=== PATIENT | male | born 1935 | race Two or more races ===

== ENCOUNTER → 2021-05-21 | Outpatient (CLI) | payer OTHER, MEDICARE ==
[2021-05-21 17:02] LABS: BUN/Creatinine Ratio 20.9; Calcium 8.5 mg/dL (8.5-10.1); Potassium 4.4 mmol/L (3.5-5.1)
== END | disposition home or self-care (01) ==
LOC: LAB 16:09
PROVIDERS: ATTEND Internal Medicine
DX: E11.9 Type 2 diabetes mellitus without complications (principal)
CPT/HCPCS: 36415; 80048

== ENCOUNTER → 2021-08-13 | Outpatient (CLI) | payer MEDICARE, MEDICAID | END | disposition home or self-care (01) | LOC: Rad HDHVI 14:26 | PROVIDERS: ATTEND Internal Medicine | DX: I07.1 Rheumatic tricuspid insufficiency (principal); I48.91 Unspecified atrial fibrillation; I10 Essential (primary) hypertension | CPT/HCPCS: 93306 ==

== ENCOUNTER → 2021-11-05 | Outpatient (CLI) | payer MEDICARE | END | disposition home or self-care (01) | LOC: LAB 16:19 | PROVIDERS: ATTEND Internal Medicine | DX: N39.0 Urinary tract infection, site not specified (principal) | CPT/HCPCS: 87086 ==

== ENCOUNTER → 2021-11-20 | Outpatient (CLI) | payer MEDICARE ==
[2021-11-20 14:13] LABS: Eosinophils # (auto) 0.2 10 ^3/uL (0-0.8); Mean Corpuscular Hemoglobin 26.2 pg (28.0-32.0)
[2021-11-20 14:14] LABS: Basophils # (auto) 0 10 ^3/uL (0-0.2); Basophils % (auto) 0.4 % (0.0-2.0); Eosinophils % (auto) 2.4 % (0.0-7.0); Hematocrit 55.2 % (41.0-53.0); Hemoglobin 17.6 g/dL (13.5-17.5); Lymphocytes # (auto) 2.6 10 ^3/uL (0.4-5.4); Lymphocytes % (auto) 27.9 % (10.0-50.0); Mean Corpuscular Volume 81.8 fL (80.0-100.0); Monocytes # (auto) 0.8 10 ^3/uL (0-1.3); Monocytes % (auto) 9.2 % (0.0-12.0); Neutrophils # (auto) 5.6 10 ^3/uL (1.6-8.6); Neutrophils % (auto) 60.1 % (37.0-80.0); Nucleated Red Blood Cells % 0.2 %; Red Blood Cells 6.74 10^6/uL (4.5-5.90); White Blood Cell 9.2 10^3/uL (4.4-10.8)
[2021-11-20 14:30] LABS: Urine Bacteria NONE SEEN /hpf (None Seen); Urine Blood 3+ /uL (Negative); Urine Specific Gravity 1.031 (1.001-1.035); Urine WBC 3 /hpf (0 - 3)
[2021-11-20 14:50] LABS: Albumin 3.2 g/dL (3.4-5.0); Potassium 4.9 mmol/L (3.5-5.1)
[2021-11-20 14:54] LABS: BUN/Creatinine Ratio 20.2; Bilirubin, Total 0.7 mg/dL (0.2-1.0); Total Protein 7.2 g/dL (6.4-8.2)
== END | disposition home or self-care (01) ==
LOC: LAB 14:00
PROVIDERS: ATTEND Internal Medicine
DX: E11.22 Type 2 diabetes mellitus with diabetic chronic kidney disease (principal); N18.31 Chronic kidney disease, stage 3a; N39.0 Urinary tract infection, site not specified
CPT/HCPCS: 36415; 80053; 81001; 83036; 85025

== ENCOUNTER → 2022-02-07 | Outpatient (CLI) | payer MEDICARE, OTHER ==
[2022-02-07 15:15] LABS: Urine Bacteria NONE SEEN /hpf (None Seen); Urine Blood TRACE /uL (Negative); Urine Specific Gravity 1.028 (1.001-1.035); Urine WBC 6 /hpf (0 - 3)
[2022-02-07 15:29] LABS: Calcium 8.5 mg/dL (8.5-10.1)
[2022-02-07 15:31] LABS: BUN/Creatinine Ratio 19.1
== END | disposition home or self-care (01) ==
LOC: LAB 14:42
PROVIDERS: ATTEND Internal Medicine
DX: E11.9 Type 2 diabetes mellitus without complications (principal); N39.0 Urinary tract infection, site not specified
CPT/HCPCS: 36415; 80048; 81001; 83036

== ENCOUNTER → 2022-02-28 | Outpatient (CLI) | payer MEDICARE, OTHER | END | disposition home or self-care (01) | LOC: LAB 13:37 | PROVIDERS: ATTEND Internal Medicine | DX: N39.0 Urinary tract infection, site not specified (principal) | CPT/HCPCS: 87086 ==

== ENCOUNTER → 2022-08-15 | Outpatient (CLI) | payer MEDICARE, OTHER ==
[2022-08-15 09:59] LABS: Basophils # (auto) 0 10 ^3/uL (0-0.2); Basophils % (auto) 0.3 % (0.0-2.0); Eosinophils # (auto) 0.1 10 ^3/uL (0-0.8); Eosinophils % (auto) 1.7 % (0.0-7.0); Hematocrit 49.7 % (41.0-53.0); Hemoglobin 16.6 g/dL (13.5-17.5); Lymphocytes # (auto) 2.6 10 ^3/uL (0.4-5.4); Lymphocytes % (auto) 32.5 % (10.0-50.0); Mean Corpuscular Hemoglobin 30.3 pg (28.0-32.0); Mean Corpuscular Hgb Conc. 33.5 g/dL (32.0-36.0); Mean Corpuscular Volume 90.7 fL (80.0-100.0); Monocytes # (auto) 0.7 10 ^3/uL (0-1.3); Monocytes % (auto) 8.9 % (0.0-12.0); Neutrophils # (auto) 4.5 10 ^3/uL (1.6-8.6); Neutrophils % (auto) 56.6 % (37.0-80.0); Nucleated Red Blood Cells % 0.2 %; Red Blood Cells 5.48 10^6/uL (4.5-5.90); Red Cell Distribution Width 15.7 % (11.8-14.3)
[2022-08-15 10:38] LABS: Albumin 3.3 g/dL (3.4-5.0); Calcium 8.9 mg/dL (8.5-10.1); Potassium 4.7 mmol/L (3.5-5.1)
[2022-08-15 10:44] LABS: Total Protein 6.4 g/dL (6.4-8.2)
== END | disposition home or self-care (01) ==
LOC: LAB 09:32
PROVIDERS: ATTEND Internal Medicine
DX: E11.9 Type 2 diabetes mellitus without complications (principal); E78.5 Hyperlipidemia, unspecified; N40.0 Benign prostatic hyperplasia without lower urinary tract symptoms
CPT/HCPCS: 36415; 80053; 80061; 82043; 83036; 85025

== ENCOUNTER 2023-01-14 15:22 | Inpatient (IN) | payer OTHER, MEDICAID ==
[~2023-01-14] VITALS: Ht 176.8 cm; Wt 94.4 kg
[2023-01-14] MEDS ORDERED: ACETAMINOPHEN 325 MG TAB PO PRN (19:15)
[2023-01-14] MEDS ORDERED: TEMAZEPAM 15 MG CAP PO PRN (19:15)
[2023-01-14] MEDS ORDERED: MAALOX PLUS or MAALOX 30 ML PO PRN (19:15)
[2023-01-14] MEDS ORDERED: DEXTROSE (50%) 50ML SYRG IV PRN (19:15)
[2023-01-14] MEDS ORDERED: ONDANSETRON HCL 4 MG/2 ML VIAL IV PRN (19:15)
[2023-01-14] MEDS ORDERED: DAPA1TAB4 PO (19:46)
[2023-01-14] MEDS ORDERED: METF-370 PO (19:46)
[2023-01-14] MEDS ORDERED: GABA-1250 PO (19:46)
[2023-01-14] MEDS ORDERED: DIGO0.12 PO (19:46)
[2023-01-14] MEDS ORDERED: SUCR1SUS26 PO (19:46)
[2023-01-14] MEDS ORDERED: TAMS0.4C36 PO (19:46)
[2023-01-14] MEDS ORDERED: METO-289 PO (19:47)
[2023-01-14] MEDS ORDERED: SPIR25TA8 PO (19:48)
[2023-01-14] MEDS ORDERED: DOXY100C4 PO (19:48)
[2023-01-14] MEDS ORDERED: FLUT50SP NAS (19:48)
[2023-01-14] MEDS ORDERED: PANT40T PO (19:49)
[2023-01-14] MEDS ORDERED: GLIP5TAB12 PO (19:49)
[2023-01-14] MEDS ORDERED: FURO40TA4 PO (19:52)
[2023-01-14] MEDS ORDERED: RIV20T PO (19:52)
[2023-01-14 19:53] VITALS: PULSE 65; RESP 18; O2SAT 99
[2023-01-14 20:00] VITALS: PULSE 65; RESP 18; O2SAT 99
[2023-01-14] MEDS: HYDROcodone-ACET 5/325MG TAB PO PRN (20:29)
[2023-01-14] MEDS: ACCU-CHEK COMFORT CURVE STRIP VI SCH (21:16)
[2023-01-14] MEDS: InsuLIN REG 1unit/0.01ml Soln (100units/ml) SC SCH (21:17)
[2023-01-14] MEDS: SODIUM CHLOR 0.9% PF (SALINE LOCK) 10ML VIAL/SYR IV SCH (21:17)
[2023-01-14 22:00] VITALS: BP 149/71; PULSE 70; RESP 19; TEMP 97.6; O2SAT 99
[2023-01-15] VITALS (7 sets, daily range): BP systolic 119–175; BP diastolic 75–92; PULSE 68–92; RESP 16–21; TEMP 97.7–99.7; O2SAT 92–100
[2023-01-15 03:05] LABS: Urine Bacteria NONE SEEN /hpf (None Seen); Urine Blood Negative /uL (Negative); Urine Clarity Clear (Clear); Urine Color Yellow (Yellow); Urine Mucus FEW (None Seen); Urine Protein, UAD TRACE (Negative); Urine Urobilinogen Normal (Negative); Urine WBC 2 /hpf (0 - 3)
[2023-01-15 03:08] LABS: Urine Specific Gravity > 1.050 (1.001-1.035)
[2023-01-15] MEDS: SODIUM CHLOR 0.9% PF (SALINE LOCK) 10ML VIAL/SYR IV SCH ×3 (06:33→22:00)
[2023-01-15] MEDS: ACCU-CHEK COMFORT CURVE STRIP VI SCH ×4 (06:33→22:00)
[2023-01-15] MEDS: InsuLIN REG 1unit/0.01ml Soln (100units/ml) SC SCH ×3 (06:35→18:11)
[2023-01-15 06:39] LABS: Eosinophils % (auto) 0.9 % (0.0-7.0); Lymphocytes # (auto) 1.4 10 ^3/uL (0.4-5.4); Nucleated Red Blood Cells % 0.1 %
[2023-01-15 06:40] LABS: Basophils # (auto) 0 10 ^3/uL (0-0.2); Eosinophils # (auto) 0.1 10 ^3/uL (0-0.8); Mean Corpuscular Hemoglobin 21.3 pg (28.0-32.0)
[2023-01-15 06:43] LABS: Basophils % (auto) 0.4 % (0.0-2.0); Hematocrit 41.4 % (41.0-53.0); Lymphocytes % (auto) 14.4 % (10.0-50.0); Mean Corpuscular Hgb Conc. 31.5 g/dL (32.0-36.0); Mean Corpuscular Volume 67.7 fL (80.0-100.0); Monocytes % (auto) 9.6 % (0.0-12.0); Neutrophils # (auto) 7.5 10 ^3/uL (1.6-8.6); Neutrophils % (auto) 74.7 % (37.0-80.0); Red Blood Cells 6.11 10^6/uL (4.5-5.90)
[2023-01-15 06:53] LABS: Albumin 3.1 g/dL (3.4-5.0); Calcium 9.2 mg/dL (8.5-10.1); Potassium 3.6 mmol/L (3.5-5.1)
[2023-01-15 06:59] LABS: BUN/Creatinine Ratio 17.6 (10.0-20.0); Bilirubin, Total 0.9 mg/dL (0.2-1.0)
[2023-01-15 07:17] LABS: Platelet Estimate Adequate
[2023-01-15 07:18] LABS: Anisocytosis Slight
[2023-01-15 07:19] LABS: Ovalocytes FEW
[2023-01-15 07:20] LABS: Hypochromia Moderate; Target Cell FEW
[2023-01-15 08:44] LABS: Folate (Folic Acid) 13.04 ng/mL (5.38-24)
[2023-01-15] MEDS: HYDROcodone-ACET 5/325MG TAB PO PRN ×2 (12:10→16:24)
[2023-01-15] MEDS ORDERED: LISINOPRIL 5 MG TAB PO ONE (14:45)
[2023-01-15] MEDS ORDERED: CYANOCOBALAMIN (B-12) 1000 MCG/1 ML VIAL IM ONE (14:45)
[2023-01-15] MEDS ORDERED: RIVAROXABAN 20 MG TAB PO SCH (18:00)
[2023-01-16] MEDS: InsuLIN REG 1unit/0.01ml Soln (100units/ml) SC SCH ×3 (00:14→11:26)
[2023-01-16] MEDS ORDERED: hydrALAZINE HCL 20 MG/ML VL IV PRN (00:45)
[2023-01-16] MEDS ORDERED: CARVEDILOL 12.5 MG TAB PO ONE (00:45)
[2023-01-16 05:00] VITALS: BP 128/77; PULSE 81; RESP 19; TEMP 99; O2SAT 92
[2023-01-16] MEDS: SODIUM CHLOR 0.9% PF (SALINE LOCK) 10ML VIAL/SYR IV SCH ×2 (06:00→14:00)
[2023-01-16] MEDS: ACCU-CHEK COMFORT CURVE STRIP VI SCH ×2 (06:45→11:26)
[2023-01-16 08:00] VITALS: PULSE 66; RESP 18; O2SAT 98
[2023-01-16 08:49] VITALS: BP_SYST 125; BP_SYST 161; BP_DIAS 57; BP_DIAS 74; PULSE 66; PULSE 85; RESP 18; RESP 24; TEMP 98.3; TEMP 98.8; O2SAT 92; O2SAT 98
[2023-01-16] MEDS ORDERED: LISINOPRIL 10 MG TAB PO SCH (10:00)
[2023-01-16] MEDS ORDERED: CARVEDILOL 12.5 MG TAB PO SCH (10:00)
[2023-01-16] MEDS ORDERED: ASPirin 81 mg TAB PO SCH (10:00)
[2023-01-16 12:45] VITALS: BP 125/71; PULSE 85; RESP 18; TEMP 98.6; O2SAT 98
[2023-01-16 13:39] VITALS: BP 125/71; PULSE 85; RESP 18; TEMP 98.6; O2SAT 98
== END 2023-01-16 14:42 | disposition home health service (06) | DRG 66 ==
LOC: WEST WING 18:39 → UNDOADMIN 18:39 → WEST WING 19:13
PROVIDERS: ADMIT Internal Medicine; ATTEND Internal Medicine
DX: I63.532 Cerebral infarction due to unspecified occlusion or stenosis of left posterior cerebral artery (principal); I10 Essential (primary) hypertension; E11.9 Type 2 diabetes mellitus without complications; I48.91 Unspecified atrial fibrillation; E78.5 Hyperlipidemia, unspecified; Z79.01 Long term (current) use of anticoagulants; Z91.81 History of falling
CPT/HCPCS: 36415; 70545; 70551; 80053; 80061; 81001; 82043; 82306; 82607; 82746; 82962; 83036; 84443; 85025; 87081; 87205; 97110; 97116; 97163; 97530; G0378; J1815; J2405

== ENCOUNTER 2023-01-18 02:07 | Inpatient (IN) | payer OTHER, MEDICAID ==
[~2023-01-18] VITALS: Ht 182.9 cm; Wt 94.7 kg
[~2023-01-18 02:07] MED LIST: DAPA1TAB4 PO; DIGO0.12 PO; FLUT50SP NAS; FURO40TA4 PO; GABA-1250 PO; GLIP5TAB12 PO; METF-370 PO; METO-289 PO; PANT40T PO; RIV20T PO; SPIR25TA8 PO; SUCR1SUS26 PO; TAMS0.4C36 PO
[2023-01-18 07:00] VITALS: BP 158/83; PULSE 70; RESP 17; TEMP 98.5; O2SAT 98
[2023-01-18] MEDS ORDERED: MORPHINE SULFATE INJ 2 MG/ml SYRG IV PRN (07:45)
[2023-01-18] MEDS ORDERED: NITROGLYCERIN 0.4 MG SL TAB SL PRN (07:45)
[2023-01-18 09:00] VITALS: BP 163/68; PULSE 66; RESP 20; TEMP 99; O2SAT 100
[2023-01-18] MEDS ORDERED: DEXTROSE (50%) 50ML SYRG IV PRN (11:15)
[2023-01-18] MEDS ORDERED: METOPROLOL SUCCINATE XL 50 MG TAB PO ONE (11:15)
[2023-01-18] MEDS ORDERED: GABAPENTIN 300 MG CAP PO ONE (11:15)
[2023-01-18] MEDS: InsuLIN REG 1unit/0.01ml Soln (100units/ml) SC SCH ×3 (11:55→23:33)
[2023-01-18] MEDS: ACCU-CHEK COMFORT CURVE STRIP VI SCH ×3 (12:01→23:25)
[2023-01-18 12:23] LABS: Basophils # (auto) 0.1 10 ^3/uL (0-0.2); Basophils % (auto) 0.8 % (0.0-2.0); Eosinophils # (auto) 0.1 10 ^3/uL (0-0.8); Eosinophils % (auto) 0.5 % (0.0-7.0); Hematocrit 42.8 % (41.0-53.0); Lymphocytes # (auto) 1.7 10 ^3/uL (0.4-5.4); Lymphocytes % (auto) 14.2 % (10.0-50.0); Mean Corpuscular Hemoglobin 20.9 pg (28.0-32.0); Mean Corpuscular Hgb Conc. 30.4 g/dL (32.0-36.0); Mean Corpuscular Volume 68.7 fL (80.0-100.0); Monocytes # (auto) 1.3 10 ^3/uL (0-1.3); Monocytes % (auto) 10.9 % (0.0-12.0); Neutrophils # (auto) 8.9 10 ^3/uL (1.6-8.6); Neutrophils % (auto) 73.6 % (37.0-80.0); Nucleated Red Blood Cells % 0.2 %; Red Blood Cells 6.24 10^6/uL (4.5-5.90); White Blood Cell 12.1 10^3/uL (4.4-10.8)
[2023-01-18 12:25] LABS: Red Cell Distribution Width 23.3 % (11.8-14.3)
[2023-01-18 12:28] LABS: Albumin 3.1 g/dL (3.4-5.0); BUN/Creatinine Ratio 21.5 (10.0-20.0); Calcium 8.8 mg/dL (8.5-10.1); Magnesium 2.8 mg/dL (1.6-2.6); Potassium 3.6 mmol/L (3.5-5.1)
[2023-01-18 12:30] LABS: INR 1.12 (0.9-1.15); Partial Thromboplastin Time 31.9 SEC (24.5-34.5); Prothrombin Time 11.7 sec (9.3-11.8)
[2023-01-18 12:32] LABS: Bilirubin, Total 1.3 mg/dL (0.2-1.0); Total Protein 7.1 g/dL (6.4-8.2)
[2023-01-18 12:37] LABS: Anisocytosis Slight; Hypochromia Moderate; Platelet Estimate Adequate
[2023-01-18 12:38] LABS: Stomatocytes Few; Target Cell FEW
[2023-01-18 12:39] LABS: Ovalocytes MODE
[2023-01-18 13:00] VITALS: BP 151/82; PULSE 76; RESP 19; TEMP 97.3; O2SAT 98
[2023-01-18] MEDS ORDERED: ACETAMINOPHEN 325 MG TAB PO PRN (13:45)
[2023-01-18] MEDS: HYDROcodone-ACET 5/325MG TAB PO PRN ×2 (14:02→20:00)
[2023-01-18 16:47] LABS: Urine Bacteria NONE SEEN /hpf (None Seen); Urine Blood Negative /uL (Negative); Urine Clarity Clear (Clear); Urine Color Yellow (Yellow); Urine Protein, UAD TRACE (Negative); Urine Specific Gravity 1.023 (1.001-1.035); Urine WBC 2 /hpf (0 - 3); Urine pH 7.5 (5.0-8.0)
[2023-01-18 17:00] VITALS: BP 121/67; PULSE 65; RESP 18; TEMP 99.5; O2SAT 97
[2023-01-18] MEDS ORDERED: HCTZ 25 MG TAB PO ONE (17:30)
[2023-01-18] MEDS ORDERED: PANTOPRAZOLE 40 MG TAB PO ONE (17:30)
[2023-01-18] MEDS: SODIUM CHLORIDE 0.9% 1,000 ML IV SCH (17:33)
[2023-01-18] MEDS: TAMSULOSIN HYDROCHLORIDE 0.4 MG CAP PO SCH (17:57)
[2023-01-18] MEDS: RIVAROXABAN 20 MG TAB PO SCH (18:00)
[2023-01-18 20:00] VITALS: BP 109/74; PULSE 62; PULSE 76; RESP 18; TEMP 98.7; O2SAT 97
[2023-01-18 22:00] VITALS: BP 109/74; PULSE 62; RESP 18; TEMP 98.7; O2SAT 97
[2023-01-18] MEDS ORDERED: DOCUSATE SOD 100 MG CAP PO ONE (22:45)
[2023-01-19] MEDS: SODIUM CHLORIDE 0.9% 1,000 ML IV SCH ×2 (03:50→09:07)
[2023-01-19 05:00] VITALS: BP 136/78; PULSE 67; RESP 18; TEMP 98.7; O2SAT 97
[2023-01-19] MEDS: ACCU-CHEK COMFORT CURVE STRIP VI SCH ×4 (05:31→23:16)
[2023-01-19] MEDS: InsuLIN REG 1unit/0.01ml Soln (100units/ml) SC SCH ×4 (05:36→23:17)
[2023-01-19 06:05] LABS: Albumin 2.7 g/dL (3.4-5.0); Potassium 3.8 mmol/L (3.5-5.1)
[2023-01-19 06:09] LABS: BUN/Creatinine Ratio 22.5 (10.0-20.0); Bilirubin, Total 1.1 mg/dL (0.2-1.0); Total Protein 6.6 g/dL (6.4-8.2)
[2023-01-19 07:30] VITALS: PULSE 68
[2023-01-19 07:48] LABS: Basophils # (auto) 0 10 ^3/uL (0-0.2); Basophils % (auto) 0.4 % (0.0-2.0); Eosinophils # (auto) 0.2 10 ^3/uL (0-0.8); Hemoglobin 12.2 g/dL (13.5-17.5); Lymphocytes # (auto) 1.8 10 ^3/uL (0.4-5.4); Monocytes # (auto) 1.2 10 ^3/uL (0-1.3)
[2023-01-19 07:51] LABS: Eosinophils % (auto) 1.5 % (0.0-7.0); Hematocrit 38.8 % (41.0-53.0); Lymphocytes % (auto) 17.5 % (10.0-50.0); Mean Corpuscular Hemoglobin 21.5 pg (28.0-32.0); Mean Corpuscular Hgb Conc. 31.4 g/dL (32.0-36.0); Mean Corpuscular Volume 68.6 fL (80.0-100.0); Monocytes % (auto) 12.2 % (0.0-12.0); Neutrophils # (auto) 6.9 10 ^3/uL (1.6-8.6); Neutrophils % (auto) 68.4 % (37.0-80.0); Red Blood Cells 5.66 10^6/uL (4.5-5.90); White Blood Cell 10.1 10^3/uL (4.4-10.8)
[2023-01-19 07:53] LABS: Red Cell Distribution Width 23.1 % (11.8-14.3)
[2023-01-19] MEDS: HYDROcodone-ACET 5/325MG TAB PO PRN ×2 (09:00→14:24)
[2023-01-19] MEDS: HCTZ 25 MG TAB PO SCH (09:01)
[2023-01-19] MEDS: PANTOPRAZOLE 40 MG TAB PO SCH (09:01)
[2023-01-19] MEDS: DOCUSATE SOD 100 MG CAP PO SCH ×2 (09:01→22:15)
[2023-01-19] MEDS: METOPROLOL SUCCINATE XL 50 MG TAB PO SCH (09:02)
[2023-01-19 09:05] VITALS: BP 149/81; PULSE 65; RESP 20; TEMP 97.7; O2SAT 98
[2023-01-19 13:29] VITALS: BP 120/61; PULSE 69; RESP 19; TEMP 97.2; O2SAT 97
[2023-01-19] MEDS ORDERED: DOCU-94 PO (16:21)
[2023-01-19] MEDS ORDERED: POLY335015 PO (16:21)
[2023-01-19] MEDS: TAMSULOSIN HYDROCHLORIDE 0.4 MG CAP PO SCH (18:36)
[2023-01-19] MEDS: RIVAROXABAN 20 MG TAB PO SCH (18:36)
[2023-01-19 20:10] VITALS: PULSE 76; PULSE 92; RESP 17; O2SAT 99
[2023-01-19 22:00] VITALS: BP 132/68; PULSE 76; RESP 17; TEMP 98; O2SAT 99
[2023-01-20 05:00] VITALS: BP 148/78; PULSE 77; RESP 19; TEMP 97.8; O2SAT 97
[2023-01-20] MEDS: ACCU-CHEK COMFORT CURVE STRIP VI SCH ×2 (05:13→11:59)
[2023-01-20] MEDS: InsuLIN REG 1unit/0.01ml Soln (100units/ml) SC SCH ×2 (05:15→12:05)
[2023-01-20 07:45] VITALS: PULSE 81
[2023-01-20] MEDS ORDERED: LACTULOSE 20Gm/30ML SOLN PO ONE (09:15)
[2023-01-20] MEDS: SODIUM CHLORIDE 0.9% 1,000 ML IV SCH (10:22)
[2023-01-20] MEDS: PANTOPRAZOLE 40 MG TAB PO SCH (10:24)
[2023-01-20] MEDS: DOCUSATE SOD 100 MG CAP PO SCH (10:24)
[2023-01-20] MEDS: HCTZ 25 MG TAB PO SCH (10:26)
[2023-01-20] MEDS: METOPROLOL SUCCINATE XL 50 MG TAB PO SCH (10:26)
[2023-01-20 10:59] VITALS: BP 128/80; PULSE 88; TEMP 36.6
[2023-01-20 13:00] VITALS: BP 118/68; PULSE 64; RESP 18; TEMP 97.9; O2SAT 95
== END 2023-01-20 14:20 | disposition home health service (06) | DRG 64 ==
LOC: EAST 06:22 → TELE-EAST 09:13
PROVIDERS: ADMIT Internal Medicine; ATTEND Student in an Organized Health Care Education/Training Program
DX: I63.9 Cerebral infarction, unspecified (principal); G93.41 Metabolic encephalopathy; K83.1 Obstruction of bile duct; I50.32 Chronic diastolic (congestive) heart failure; E11.9 Type 2 diabetes mellitus without complications; I48.91 Unspecified atrial fibrillation; E86.0 Dehydration; I11.0 Hypertensive heart disease with heart failure; E78.5 Hyperlipidemia, unspecified; N40.0 Benign prostatic hyperplasia without lower urinary tract symptoms; Z79.01 Long term (current) use of anticoagulants; Z90.49 Acquired absence of other specified parts of digestive tract
CPT/HCPCS: 36415; 71045; 76705; 80053; 80162; 81001; 82962; 83735; 83880; 84484; 85025; 85610; 85730; 87081; 93886; 97110; 97116; 97163; 97530; G0378; J1815

== ENCOUNTER → 2023-02-03 | Outpatient (CLI) | payer OTHER, MEDICAID ==
[~2023-02-03] MED LIST changes: +DOCU-94 PO; +POLY335015 PO
[2023-02-03 11:43] LABS: Anion Gap 7.6 (5-15); Carbon Dioxide 24.4 mmol/L (20-30); Chloride 102 mmol/L (98-107); Potassium 4.7 mmol/L (3.5-5.1); Sodium 134 mmol/L (136-145)
[2023-02-03 11:44] LABS: Calcium 9.3 mg/dL (8.5-10.1)
[2023-02-03 11:49] LABS: BUN/Creatinine Ratio 11.5 (10.0-20.0); Blood Urea Nitrogen 14 mg/dL (9-23); Glucose 148 mg/dL (74-106)
== END | disposition home or self-care (01) ==
LOC: LAB 10:35
PROVIDERS: ATTEND Internal Medicine
DX: E11.9 Type 2 diabetes mellitus without complications (principal)
CPT/HCPCS: 36415; 80048

== ENCOUNTER 2023-02-04 10:03 | Emergency (ER) | payer OTHER, MEDICAID ==
[~2023-02-04] VITALS: Ht 177.8 cm; Wt 90.9 kg
[2023-02-04 10:38] LABS: Basophils # (auto) 0 10 ^3/uL (0-0.2); Eosinophils # (auto) 0.1 10 ^3/uL (0-0.8); Hemoglobin 13.9 g/dL (13.5-17.5); Nucleated Red Blood Cells % 0.1 %
[2023-02-04 10:40] LABS: Basophils % (auto) 0.5 % (0.0-2.0); Eosinophils % (auto) 0.9 % (0.0-7.0); Hematocrit 44.4 % (41.0-53.0); Lymphocytes % (auto) 22.3 % (10.0-50.0); Mean Corpuscular Hemoglobin 22.1 pg (28.0-32.0); Mean Corpuscular Hgb Conc. 31.3 g/dL (32.0-36.0); Mean Corpuscular Volume 70.6 fL (80.0-100.0); Monocytes % (auto) 10.6 % (0.0-12.0); Neutrophils % (auto) 65.7 % (37.0-80.0); Red Blood Cells 6.29 10^6/uL (4.5-5.90); Red Cell Distribution Width 25.5 % (11.8-14.3)
[2023-02-04 10:56] LABS: Alanine Aminotransferase 30 U/L (7-40); Albumin 3.7 g/dL (3.2-4.8); Alkaline Phosphatase 134 U/L (46-116); Anion Gap 5.9 (5-15); Aspartate Aminotransferase 20 U/L (13-40); BUN/Creatinine Ratio 15.3 (10.0-20.0); Blood Urea Nitrogen 18 mg/dL (9-23); Calcium 9.2 mg/dL (8.5-10.1); Carbon Dioxide 24.1 mmol/L (20-30); Chloride 105 mmol/L (98-107); Glucose 106 mg/dL (74-106); Potassium 4.7 mmol/L (3.5-5.1); Sodium 135 mmol/L (136-145)
[2023-02-04 10:57] LABS: Bilirubin, Total 1.1 mg/dL (0.2-1.0); Total Protein 6.2 g/dL (5.7-8.2)
[2023-02-04 11:04] LABS: Platelet Estimate Adequate
[2023-02-04 11:05] LABS: Anisocytosis Slight; Hypochromia Slight; Ovalocytes FEW
[2023-02-04 11:25] VITALS: PULSE 74; RESP 16; O2SAT 100
[2023-02-04 12:01] VITALS: BP 136/66; PULSE 75; RESP 14; TEMP 98.2; O2SAT 100
== END 2023-02-04 12:36 | disposition short-term general hospital (02) ==
LOC: ER 10:03
DX: I62.9 Nontraumatic intracranial hemorrhage, unspecified (principal); E11.9 Type 2 diabetes mellitus without complications; E78.5 Hyperlipidemia, unspecified; I10 Essential (primary) hypertension
CPT/HCPCS: 36415; 80053; 84484; 85025; 93005; 99291

== ENCOUNTER → 2023-03-17 | Outpatient (CLI) | payer OTHER, MEDICAID ==
[2023-03-17 11:01] LABS: Eosinophils # (auto) 0.3 10 ^3/uL (0-0.8); Eosinophils % (auto) 3.8 % (0.0-7.0); Lymphocytes # (auto) 1.9 10 ^3/uL (0.4-5.4); Mean Corpuscular Hemoglobin 22.3 pg (28.0-32.0); Neutrophils # (auto) 3.8 10 ^3/uL (1.6-8.6); Nucleated Red Blood Cells % 0.1 %; White Blood Cell 6.9 10^3/uL (4.4-10.8)
[2023-03-17 11:03] LABS: Basophils # (auto) 0 10 ^3/uL (0-0.2); Basophils % (auto) 0.6 % (0.0-2.0); Hematocrit 38.9 % (41.0-53.0); Hemoglobin 12.2 g/dL (13.5-17.5); Lymphocytes % (auto) 27.9 % (10.0-50.0); Mean Corpuscular Hgb Conc. 31.4 g/dL (32.0-36.0); Mean Corpuscular Volume 71.1 fL (80.0-100.0); Monocytes # (auto) 0.8 10 ^3/uL (0-1.3); Neutrophils % (auto) 55.7 % (37.0-80.0); Red Blood Cells 5.47 10^6/uL (4.5-5.90); Red Cell Distribution Width 21.7 % (11.8-14.3)
[2023-03-17 11:40] LABS: Alanine Aminotransferase 13 U/L (7-40); Albumin 3.8 g/dL (3.2-4.8); Alkaline Phosphatase 127 U/L (46-116); Anion Gap 5 (5-15); Aspartate Aminotransferase < 8 U/L (13-40); BUN/Creatinine Ratio 12.8 (10.0-20.0); Blood Urea Nitrogen 14 mg/dL (9-23); Calcium 9.1 mg/dL (8.7-10.4); Carbon Dioxide 27 mmol/L (20-30); Chloride 110 mmol/L (98-107); Glucose 117 mg/dL (74-106); Potassium 3.8 mmol/L (3.5-5.1); Sodium 142 mmol/L (136-145); Total Protein 6.3 g/dL (5.7-8.2)
[2023-03-17 12:10] LABS: Bilirubin, Total 0.7 mg/dL (0.2-1.0)
[2023-03-17 12:28] LABS: Anisocytosis Slight; Hypochromia Moderate; Platelet Estimate Adequate
== END | disposition home or self-care (01) ==
LOC: LAB 10:44
PROVIDERS: ATTEND Internal Medicine
DX: E11.9 Type 2 diabetes mellitus without complications (principal)
CPT/HCPCS: 36415; 80053; 83036; 85025

== ENCOUNTER 2023-05-11 15:56 | Inpatient (IN) | payer OTHER, MEDICAID ==
[~2023-05-11] VITALS: Ht 165.1 cm; Wt 95.0 kg
[2023-05-11 16:54] VITALS: PULSE 84; RESP 16; O2SAT 96
[2023-05-11 17:09] LABS: Urine Bacteria NONE SEEN /hpf (None Seen); Urine Blood 2+ /uL (Negative); Urine Clarity HAZY (Clear); Urine Color Yellow (Yellow); Urine Protein, UAD Negative (Negative); Urine Specific Gravity 1.031 (1.001-1.035); Urine Urobilinogen Normal (Negative); Urine WBC 55 /hpf (0 - 3)
[2023-05-11 17:41] LABS: Basophils # (auto) 0.1 10 ^3/uL (0-0.2); Hemoglobin 12.4 g/dL (13.5-17.5); Monocytes # (auto) 1.1 10 ^3/uL (0-1.3)
[2023-05-11 17:44] LABS: Basophils % (auto) 0.5 % (0.0-2.0); Eosinophils # (auto) 0.1 10 ^3/uL (0-0.8); Eosinophils % (auto) 1.4 % (0.0-7.0); Hematocrit 40.3 % (41.0-53.0); Lymphocytes # (auto) 1.4 10 ^3/uL (0.4-5.4); Lymphocytes % (auto) 13.6 % (10.0-50.0); Mean Corpuscular Hgb Conc. 30.7 g/dL (32.0-36.0); Mean Corpuscular Volume 68.2 fL (80.0-100.0); Monocytes % (auto) 10.7 % (0.0-12.0); Neutrophils # (auto) 7.7 10 ^3/uL (1.6-8.6); Neutrophils % (auto) 73.8 % (37.0-80.0); Nucleated Red Blood Cells % 0.1 %; Red Blood Cells 5.91 10^6/uL (4.5-5.90); Red Cell Distribution Width 19.7 % (11.8-14.3); White Blood Cell 10.4 10^3/uL (4.4-10.8)
[2023-05-11 17:54] LABS: Alanine Aminotransferase 28 U/L (7-40); Albumin 3.5 g/dL (3.2-4.8); Alkaline Phosphatase 141 U/L (46-116); Anion Gap 8 (5-15); Aspartate Aminotransferase 11 U/L (13-40); BUN/Creatinine Ratio 21.6 (10.0-20.0); Blood Urea Nitrogen 21 mg/dL (9-23); Calcium 8.7 mg/dL (8.5-10.1); Carbon Dioxide 25 mmol/L (20-30); Chloride 110 mmol/L (98-107); Glucose 236 mg/dL (74-106); Sodium 143 mmol/L (136-145)
[2023-05-11 17:55] LABS: Bilirubin, Total 0.7 mg/dL (0.2-1.0); Total Protein 5.6 g/dL (5.7-8.2)
[2023-05-11 19:20] VITALS: PULSE 74; RESP 22; O2SAT 99
[2023-05-11] MEDS ORDERED: cefTRIAXone 1GM/50ML D5W 50 ML IV ONE (20:00)
[2023-05-11 20:23] LABS: INR 1.01 (0.9-1.15); Prothrombin Time 10.6 sec (9.3-11.8)
[2023-05-11] MEDS ORDERED: ONDANSETRON HCL 4 MG/2 ML VIAL IV PRN (22:00)
[2023-05-11] MEDS ORDERED: ACETAMINOPHEN 325 MG TAB PO PRN (22:00)
[2023-05-11] MEDS ORDERED: NITROGLYCERIN 0.4 MG SL TAB SL PRN (22:00)
[2023-05-11] MEDS ORDERED: DEXTROSE (50%) 50ML SYRG IV PRN (22:00)
[2023-05-11] MEDS: InsuLIN REG 1unit/0.01ml Soln (100units/ml) SC SCH (22:00)
[2023-05-11] MEDS: ACCU-CHEK COMFORT CURVE STRIP VI SCH (22:00)
[2023-05-11] MEDS ORDERED: MORPHINE SULFATE INJ 2 MG/ml SYRG IV PRN (22:00)
[2023-05-11] MEDS ORDERED: DOCUSATE SOD 100 MG CAP PO PRN (22:00)
[2023-05-11] MEDS ORDERED: DONE5TAB80 PO (22:06)
[2023-05-11] MEDS ORDERED: METO1TAB9 PO (22:06)
[2023-05-11] MEDS: SUCRALFATE 1 GM/10 ML ORAL SUSP PO SCH (22:50)
[2023-05-12 05:17] LABS: Basophils % (auto) 0.5 % (0.0-2.0); Eosinophils # (auto) 0.2 10 ^3/uL (0-0.8); Hematocrit 39.1 % (41.0-53.0); Hemoglobin 12.1 g/dL (13.5-17.5); Mean Corpuscular Hgb Conc. 30.8 g/dL (32.0-36.0); Mean Corpuscular Volume 68.3 fL (80.0-100.0); Neutrophils # (auto) 6.6 10 ^3/uL (1.6-8.6)
[2023-05-12 05:18] LABS: Basophils # (auto) 0.1 10 ^3/uL (0-0.2); Eosinophils % (auto) 2.1 % (0.0-7.0); Lymphocytes % (auto) 19.8 % (10.0-50.0); Mean Corpuscular Hemoglobin 21.1 pg (28.0-32.0); Monocytes # (auto) 1.1 10 ^3/uL (0-1.3); Monocytes % (auto) 10.9 % (0.0-12.0); Neutrophils % (auto) 66.7 % (37.0-80.0); Nucleated Red Blood Cells % 0.2 %; Red Blood Cells 5.72 10^6/uL (4.5-5.90); White Blood Cell 9.9 10^3/uL (4.4-10.8)
[2023-05-12 05:26] LABS: Alanine Aminotransferase 23 U/L (7-40); Albumin 3.4 g/dL (3.2-4.8); Alkaline Phosphatase 126 U/L (46-116); Anion Gap 7 (5-15); Aspartate Aminotransferase 11 U/L (13-40); BUN/Creatinine Ratio 22.4 (10.0-20.0); Blood Urea Nitrogen 24 mg/dL (9-23); Calcium 8.5 mg/dL (8.7-10.4); Carbon Dioxide 24 mmol/L (20-30); Chloride 112 mmol/L (98-107); Glucose 195 mg/dL (74-106); Potassium 4.1 mmol/L (3.5-5.1); Sodium 143 mmol/L (136-145)
[2023-05-12 05:27] LABS: Bilirubin, Total 0.8 mg/dL (0.2-1.0); Total Protein 5.6 g/dL (5.7-8.2)
[2023-05-12 05:41] LABS: Red Cell Distribution Width 20.3 % (11.8-14.3)
[2023-05-12] MEDS ORDERED: ASPirin 325 MG TAB PO ONE (06:30)
[2023-05-12] MEDS: SUCRALFATE 1 GM/10 ML ORAL SUSP PO SCH ×3 (06:42→17:35)
[2023-05-12] MEDS: InsuLIN REG 1unit/0.01ml Soln (100units/ml) SC SCH ×3 (06:43→17:36)
[2023-05-12] MEDS: ACCU-CHEK COMFORT CURVE STRIP VI SCH ×3 (06:43→17:26)
[2023-05-12 07:45] VITALS: PULSE 73; RESP 23; O2SAT 98
[2023-05-12] MEDS ORDERED: cefTRIAXone 1GM/50ML D5W 50 ML IV SCH (09:00)
[2023-05-12] MEDS ORDERED: GABAPENTIN 300 MG CAP PO SCH (10:00)
[2023-05-12] MEDS ORDERED: PANTOPRAZOLE 40 MG TAB PO SCH (10:00)
[2023-05-12] MEDS ORDERED: METOPROLOL SUCCINATE XL 50 MG TAB PO SCH (10:00)
[2023-05-12] MEDS ORDERED: DIGOXIN 0.125 MG TAB PO SCH (10:00)
[2023-05-12] MEDS ORDERED: DONEPEZIL HYDROCHLORIDE 5 MG TAB PO SCH (10:00)
[2023-05-12] MEDS ORDERED: IOHEXOL 300 MG/ML 100ML BOTTLE IJ ONE ×2 (10:20→13:51)
[2023-05-12 16:04] VITALS: BP 129/69; RESP 14; TEMP 98.1; O2SAT 96
[2023-05-12 16:47] VITALS: PULSE 64
[2023-05-12] MEDS ORDERED: TAMSULOSIN HYDROCHLORIDE 0.4 MG CAP PO SCH (18:00)
[2023-05-12] MEDS ORDERED: RIVAROXABAN 20 MG TAB PO SCH (18:00)
[2023-05-13 08:06] LABS: PSA Free 0.43 ng/mL; Prostate Specific Antigen 2.7 ng/mL (0.0-4.0)
[2023-05-13] MEDS ORDERED: ASPirin 81 mg TAB PO SCH (10:00)
[2023-05-13] MEDS ORDERED: CEPH250C PO (11:12)
[2023-05-13] MEDS ORDERED: TAMS-35 PO (11:12)
== END 2023-05-12 17:50 | disposition home or self-care (01) | DRG 689 ==
LOC: EDBD 15:56 → ER 15:56 → EDUNIT# 15:56 → TELE 22:06
PROVIDERS: ADMIT Internal Medicine; ATTEND Student in an Organized Health Care Education/Training Program
DX: N30.01 Acute cystitis with hematuria (principal); I21.A1 Myocardial infarction type 2; J90 Pleural effusion, not elsewhere classified; E11.42 Type 2 diabetes mellitus with diabetic polyneuropathy; E66.9 Obesity, unspecified; Z68.34 Body mass index [BMI] 34.0-34.9, adult; E78.5 Hyperlipidemia, unspecified; F03.90 Unspecified dementia, unspecified severity, without behavioral disturbance, psychotic disturbance, mood disturbance, and anxiety; N28.1 Cyst of kidney, acquired; K76.0 Fatty (change of) liver, not elsewhere classified; K57.90 Diverticulosis of intestine, part unspecified, without perforation or abscess without bleeding; I10 Essential (primary) hypertension; I48.91 Unspecified atrial fibrillation; Z79.01 Long term (current) use of anticoagulants; Z79.84 Long term (current) use of oral hypoglycemic drugs; Z79.899 Other long term (current) drug therapy; Z82.49 Family history of ischemic heart disease and other diseases of the circulatory system
CPT/HCPCS: 36415; 71045; 74177; 80053; 80162; 81001; 82962; 83735; 83880; 84154; 84484; 85025; 85379; 85610; 93005; 93306; 96365; G0378; J0696; J1815

== ENCOUNTER → 2023-05-29 | Outpatient (CLI) | payer OTHER, MEDICAID ==
[~2023-05-29] MED LIST changes: +CEPH250C PO; +DONE5TAB80 PO; +METO1TAB9 PO; +TAMS-35 PO
[2023-05-29 11:13] LABS: Basophils # (auto) 0.1 10 ^3/uL (0-0.2); Eosinophils # (auto) 0.2 10 ^3/uL (0-0.8); Mean Corpuscular Hemoglobin 21.7 pg (28.0-32.0); Monocytes % (auto) 12.3 % (0.0-12.0); Neutrophils # (auto) 4.6 10 ^3/uL (1.6-8.6); White Blood Cell 8.3 10^3/uL (4.4-10.8)
[2023-05-29 11:16] LABS: Hematocrit 41.1 % (41.0-53.0); Hemoglobin 12.6 g/dL (13.5-17.5); Lymphocytes # (auto) 2.4 10 ^3/uL (0.4-5.4); Lymphocytes % (auto) 28.8 % (10.0-50.0); Mean Corpuscular Hgb Conc. 30.7 g/dL (32.0-36.0); Mean Corpuscular Volume 70.7 fL (80.0-100.0); Neutrophils % (auto) 54.9 % (37.0-80.0); Nucleated Red Blood Cells % 0.3 %; Red Blood Cells 5.81 10^6/uL (4.5-5.90); Red Cell Distribution Width 21.8 % (11.8-14.3)
[2023-05-29 11:51] LABS: Urine Bacteria NONE SEEN /hpf (None Seen); Urine Blood 3+ /uL (Negative); Urine Clarity Clear (Clear); Urine Color Yellow (Yellow); Urine Mucus FEW (None Seen); Urine Protein, UAD Negative (Negative); Urine Specific Gravity 1.025 (1.001-1.035); Urine Urobilinogen Normal (Negative); Urine WBC 12 /hpf (0 - 3)
== END | disposition home or self-care (01) ==
LOC: LAB 10:56
PROVIDERS: ATTEND Internal Medicine
DX: E11.42 Type 2 diabetes mellitus with diabetic polyneuropathy (principal); J44.9 Chronic obstructive pulmonary disease, unspecified
CPT/HCPCS: 36415; 81001; 85025

== ENCOUNTER → 2023-07-01 | Outpatient (CLI) | payer OTHER, MEDICAID ==
[~2023-07-01] VITALS: Ht 172.7 cm; Wt 104.3 kg
[2023-07-01] MEDS: ADENOSINE 88 MG in GIVE UN-DILUTED 0 ML IV ONE ×2 (10:22→10:29)
== END | disposition home or self-care (01) ==
LOC: XYW 09:13
PROVIDERS: ATTEND Internal Medicine
DX: I50.23 Acute on chronic systolic (congestive) heart failure (principal); R06.02 Shortness of breath; I42.0 Dilated cardiomyopathy; R93.1 Abnormal findings on diagnostic imaging of heart and coronary circulation; I48.19 Other persistent atrial fibrillation; D68.69 Other thrombophilia; Z95.0 Presence of cardiac pacemaker
CPT/HCPCS: 78452; 93017; A9500; J0153

== ENCOUNTER → 2024-04-04 | Outpatient (CLI) | payer OTHER, MEDICAID ==
[~2024-04-04] MED LIST changes: -GLIP5TAB12 PO; +GLIP5TAB21 PO; -TAMS0.4C36 PO; +TAMS0.4C39 PO
[2024-04-04 12:17] LABS: Folate (Folic Acid) 13.31 ng/mL (>5.38)
[2024-04-05 08:07] LABS: RPR Non Reactive (Non Reactive)
== END | disposition home or self-care (01) ==
LOC: LAB 10:57
PROVIDERS: ATTEND Internal Medicine
DX: E11.9 Type 2 diabetes mellitus without complications (principal)
CPT/HCPCS: 36415; 82306; 82607; 82746; 84443; 86592